=== PATIENT | female | born 1965 | race Caucasian/White ===

== ENCOUNTER → 2020-06-21 | Outpatient (CLI) | payer BC ==
[~2020-06-21] MED LIST: PROHANCE 279.3MG/ML 15ML VIAL As Ordered ONE
--- NOTE | 2020-06-28 08:50 | REP ---
INDICATION: DUCTAL CARCINOMA OF RT BREAST. Patient is recent biopsy diagnosis of ductal carcinoma in situ right breast. COMPARISON: Comparison breast MRI study is from December 07, 2015. Comparison right breast mammography and sonography May 29, 2020 which comparison mammography is reviewed from March 13, 2020 as well as February 29, 2020 and February 12, 2017. As well. TECHNIQUE: Three Whit MRI imaging was performed with a dedicated breast coil. Axial, coronal, and sagittal T1 and T2 weighted scans were obtained with and without fat saturation in the usual fashion. The study includes dynamically acquired post gadolinium-enhanced imaging with image subtraction. Maximum intensity projection and multi planar reformation imaging is included as well. This study is interpreted with the aid of [employer], an FDA approved computer aided detection (CAD) software program, on a dedicated breast MRI workstation. The gadolinium enhancement dose is 14. mL of intravenous ProHance. FINDINGS: There is a marked amount of fibroglandular tissue bilaterally corresponding with the mammographic pattern. There is marked background parenchymal enhancement. There is no evidence of axillary lymphadenopathy or internal mammary lymphadenopathy on either side. There are multiple breast cysts bilaterally again noted. The largest of these benign-appearing cysts in the right breast at approximately the 8 o'clock position. This cyst measures 1.7 cm in greatest diameter. There is a heterogeneous area in the region of the fundus of the gallbladder or adjacent to the fundus of the gallbladder in the nearby liver noted at the bottom of the imaging field of view. This should be further evaluated with right upper quadrant ultrasound. There is a T2 hyperintense nodule demonstrating type 3 enhancement in the 4 o'clock position of the left breast middle 3rd. There is a corresponding nodule visible on recent mammography. This may be fibroadenoma but appears to be a mammographic change. This showed be histologically sampled. There is a previously placed needle biopsy marker clip posterior to this in the left breast as well generating MR artifact. In the right breast in the area of the recently placed needle biopsy marker clip artifact, there is a ill-defined heterogeneous new area of contrast enhancement measuring 2.3 cm medial to lateral by 1.0 cm anterior to posterior located 3 cm from the nipple which is felt to correspond with biopsy-proven malignancy. It shows predominantly benign pattern enhancement with a few foci of plateau pattern enhancement. Other than the the marked diffuse bilateral background parenchymal enhancement pattern which was previously observed, no other suspicious focus enhancement and/or washout or morphologic changes seen on today's study. IMPRESSION: BI-RADS category 6 known right breast malignancy. A 2.3 cm ill-defined area of mixed pattern enhancement is seen adjacent to the biopsy marker clip in the medial right breast at approximately the 3 o'clock position. No other suspicious abnormality is noted on the right. There is no visible adenopathy. BI-RADS category 4 suspicious findings left breast with a 7 mm well-circumscribed nodule displaying T2 hyperintensity and type 3 enhancement at 4 o'clock in the left breast. This may be fibroadenoma but appears to be a new finding. Histologic sampling is recommended. Second-look ultrasound can be performed however I feel the nodule in question can be observed correlating the MR findings with the mammogram and stereotactic needle biopsy would be a possibility as well. Lastly, there is a heterogeneous area in or adjacent to the fundus of the gallbladder seen at the bottom of the imaging field of today's study. This should be investigated further with right upper quadrant abdominal sonography. <Electronically signed by Tobin Peters > 06/28/20 [id number]
== END ==
LOC: M RAD 16:13
PROVIDERS: ATTEND Surgery
DX: D05.11 Intraductal carcinoma in situ of right breast (principal)
CPT/HCPCS: A9576; C8908

== ENCOUNTER → 2020-07-04 | Outpatient (CLI) | payer BC ==
[~2020-07-04] MED LIST changes: +OCUV1CHW PO; +OSTE1TAB2 PO; -PROHANCE 279.3MG/ML 15ML VIAL As Ordered ONE; +ZINC1TAB2 PO
--- NOTE | 2020-07-04 16:29 | RADONC.CN ---
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 She is s/p biopsy on 05/19/20 and will undergo surgery with Dr. Collins in the coming weeks. She is seen today prior to surgery to discuss potential adjuvant RT options. Diagnosis/Treatment History Oncologic History 02/29/20 Mammogram with right breast microcalcifications lower inner quadrant 03/13/20 Right breast US inconclusive 05/29/20 [facility] mammogram and US biopsy showing DCIS ER/DE+ Grade 3 06/15/20 Surgical consultation (Karina) plan for lumpectomy tentatively. Second look/marker placement US 07/18/20 Breast history Menses @ 20 Menopause @ 52 No OCP No HRT No IVF Interval History Feels well overall no complaints. No pain in the breasts, appetite good and weight stable. Past Medical History: None Past Surgical History: Prior left breast biopsy 2013 Family History: Paternal grandmother leukemia Paternal uncle lung cancer Paternal uncle leukemia Social History: Never smoker Never drinker Allergies / Meds Home Meds Reported Medications Zinc (Zinc) 50 Mg Tablet, 1 TAB PO DAILY for 30 Days, #30 TAB 07/04/20 Vit D3-Vit K/Berberine/Hops (Ostera Tablet) 1 Each Tablet, 1 TAB PO, TAB 07/04/20 Vit C/E/Zinc/Lutein/Zeaxanthin (Ocuvite Eye Health Gummies) 1 Each Tab.chew, 1 TAB PO DAILY for 30 Days, #30 TAB 07/04/20 Review of Systems General: Reports: Normal Appetite Constitutional: Denies: Chills, Fever, Night Sweats Eyes: Denies: Pain, Vision change HEENT: Denies: Head Aches, Dysphagia, Sore Throat Skin: Denies: Rash, Lesions, Bruising Pulmonary: Denies: Dyspnea, Cough Cardiovascular: Denies: Chest Pain, Palpitations, Edema Gastrointestinal: Denies: Nausea, Vomiting, Abdominal Pain, Diarrhea Genitourinary: Denies: Dysuria, Frequency, Incontinence Hematologic: Denies: Bruising, Petecchia, Enlarged Lymph Nodes Musculoskeletal: Denies: Neck pain, Back pain Neurological: Denies: Weakness, Numbness, Incoordination Psych: Reports: Mood Normal; Denies: Memory Issues, Thoughts of Self Harm Vital Signs Ht 62" Wt 162 lbs BMI 30 T 98 P 85 RR 18 BP 119/80 O2 98% Pain 0 Fatigue 0 General Exam: Positive: Alert Eye Exam: Positive: PERRLA, EOMI ENT EXAM: Positive: Mucous membr. moist/pink, Pharynx Normal Neck Exam: Negative: Thyromegaly, Lymphadenopathy Chest Exam: Positive: Normal air movement; Negative: Rales, Rhonchi, Wheezing Heart Exam: Positive: Rate Normal, Regular Rhythm Breast Exam: Positive: Symmetric Bilaterally (Dense breast tissue on palpation); Negative: Lumps or Masses, Nipple Retraction, Nipple Discharge, Skin Changes, Other Breast Findings (No axillary adenopathy BL) Abdomen Exam: Positive: Soft; Negative: Tenderness, Mass Extremity Exam: Negative: Edema, Tenderness Skin Exam: Positive: Nl turgor and temperature; Negative: Rash Neuro Exam: Positive: Normal Gait, Normal Speech, Cranial Nerves 3-12 NL Psych Exam: Positive: Mental status NL, Mood NL Diagnostic and Laboratory Diagnostic Review Radiologic images, relevant labs and pathology reports were personally reviewed and discussed with Ms. Sauceda. Assessment and Plan Impression Ms. Sauceda is a 54 year old female with a history of screening mammogram detected right breast DCIS [id number] ER/DE+ Grade 3. She is s/p biopsy on 05/19/20 and will undergo surgery with Dr. Collins in the coming weeks. She is seen today prior to surgery to discuss potential adjuvant RT options. Stage Stage 0 Right breast DCIS [id number] ER/DE+ Grade 3 Performance Status ECOG 0 Plan We had an extensive discussion with Ms. Sauceda regarding the diagnosis at hand and available therapeutic options. She is healthy and fit overall. She has no palpable abnormality on breast exam today. I reviewed the natural history of DCIS at length with her. I also reviewed the main paradigms of treatment with her. Mastectomy +/- reconstruction, usually without adjuvant RT + AI Lumpectomy with adjuvant RT + AI She has been interested in lumpectomy and intends to pursue this with Dr. Collins pending clip placement and US on 07/18/20. I then reviewed at length the various RT strategies and how they would be contingent upon final surgical pathology. We discussed the standard treatment WBI with moderate hypofractionation, I use 40 Gy in 15 fractions, and newer evidence (from the recent TROG study) which affirms the utility of tumor bed boost in most cases. We also discussed the indications and appropriateness of APBI in select DCIS cases. We discussed the logistics of receiving radiation therapy in detail including the need for a 1-time planning session. We discussed potential side effects including fatigue, skin reaction and late fibrosis. We also discussed the purpose of taking an AI after completion of surgery and adjuvant RT (because she asked), she will meet with Dr. Roe more extensively about this later today. After discussing the risks, benefits and alternatives to radiation therapy, Ms. Sauceda was amenable to pursuing radiotherapy contingent upon final pathology. All questions were answered to the patient's satisfaction. We instructed the patient that if there were any questions,concerns or changes in clinical status in the interim to contact us. Recommendations Will follow up surgical date and pathology and proceed with adjuvant RT accordingly Most likely WBI 40 Gy in 15 fractions + 10 Gy in 5 fraction tumor bed boost, or APBI per IMPORT LOW or FAST FORWARD regimens Billing Statement Total time of [45] minutes was spent preparing for the visit [2], obtaining HPI [5], examining the patient [4], reviewing diagnostic tests [5], discussing management options [20], coordinating care [1], and writing this note [8]. LESLEE GUAN MD July 04, 2020 16:29
== END ==
LOC: M ONCR 12:54
PROVIDERS: ATTEND General Practice
DX: D05.11 Intraductal carcinoma in situ of right breast (principal)

== ENCOUNTER → 2020-07-18 | Outpatient (CLI) | payer BC ==
--- NOTE | 2020-07-18 12:17 | REP ---
INDICATION: ABN MRI ABD, ABN MRI LT BREAST, SECOND LOOK IMAGES. COMPARISON: Mammogram 05/29/2020, MRI 06/21/2020. TECHNIQUE: Real-time sonographic evaluation of left breast performed. FINDINGS: Attention is paid to the inferolateral left breast where a 7 mm enhancing nodule is seen by MRI. This is also felt to be visualized on the prior mammogram. In the 3 o'clock region of the left breast there are oval nodules which have a sonographic appearance of small intramammary lymph nodes, measuring 5 x 3 x 5 mm and 6 x 3 x 6 mm. A cystic structure in the retroareolar region measures 7 mm. At 3 o'clock near the nipple there is a 7 mm septated cyst. At 5 o'clock there is a 5 mm cyst approximately 4 cm from the nipple. IMPRESSION: BIRADS/ACR category 4 suspicious. The solid nodule in the inferolateral left breast seen on the MRI is not identified sonographically. Recommend stereotactic biopsy. RECOMMENDATION: Recommend stereotactic biopsy of oval nodule inferolateral left breast. <Electronically signed by Edgar Purdy > 07/18/20 [id number]
--- NOTE | 2020-07-18 14:35 | REP ---
INDICATION: ABN MRI ABD, ABN MRI LT BREAST, SECOND LOOK IMAGES COMPARISON: No prior ultrasound, CT, or MRI is available for comparison. TECHNIQUE: Real time castano scale ultrasound examination using curved array transducer. FINDINGS: Liver and visualized pancreas are normal. The gallbladder demonstrates a questionable mass at the fundus with small echogenic foci. Differential diagnosis would include tumefactive sludge. There is no wall thickening or pericholecystic fluid. No biliary ductal dilatation is appreciated and the common bile duct measures 3 mm diameter. Right kidney is normal in reniform shape in appearance without hydronephrosis and measures 10.0 x 4.5 x 3.9 cm. No ascites. IMPRESSION: Cannot exclude mass versus tumefactive sludge in the gallbladder fundus. Consider pre and postcontrast CT of the abdomen for further investigation. <Electronically signed by Thiago Galvin > 07/18/20 [id number]
== END ==
LOC: M RAD 09:04
PROVIDERS: ATTEND Surgery
DX: R93.5 Abnormal findings on diagnostic imaging of other abdominal regions, including retroperitoneum (principal); N63.25 Unspecified lump in the left breast, overlapping quadrants

== ENCOUNTER → 2020-07-20 | Outpatient (CLI) | payer BC ==
[2020-07-20 16:01] VITALS: BP 130/80
--- NOTE | 2020-07-21 18:36 | REP ---
INDICATION: R92.8 ABN MRI LT BREAST, STEROTACTIC BX. COMPARISON: None. TECHNIQUE: The procedure was performed under the general supervision of Dr. Purdy. The patient has a history of a well-circumscribed 7 mm nodule at the 4 o'clock position of the left breast seen on a previous MRI dated 06/21/2020. This correlates with the previous finding on the mammogram. The risks and benefits of the procedure were explained to the patient and informed consent was obtained. A caudal cranial approach was utilized. The nodule was localized using stereotactic mammographic guidance. 1% Xylocaine was used as a local anesthetic. An 10 gauge, suction assisted Mammotome needle was inserted and 6 core biopsy samples were obtained. A marker (HydroMARK shape 3) clip was placed at the biopsy site. The patient tolerated the procedure well and there were no immediate complications. After the appropriate amount of monitored convalescence, the patient was discharged from the department. FINDINGS: None IMPRESSION: Stereotactic left breast biopsy with marker clip placement. (HydroMARK shape 3) <Electronically signed by Juanito Langford > 07/20/20 1712 <Electronically signed by Edgar Purdy > 07/21/20 3032
--- NOTE | 2020-07-21 18:36 | REP ---
INDICATION: C50.911 RT BREAST CA,POST STEREO PLACEMENT HYDROMARK X2. COMPARISON: None. TECHNIQUE: The procedure was performed under the general supervision of Dr. Purdy. The risks and benefits of the procedure were explained to the patient and informed consent was obtained. The patient is referred for placement of HydroMARK clips bracketing the calcifications in the area of a known right breast malignancy. A craniocaudal approach was utilized. The more lateral aspect of the calcifications were localized using stereotactic mammographic guidance. The skin was prepped and draped in a sterile fashion. 1% lidocaine was used as local anesthetic. The mammotome biopsy needle was inserted and a HydroMARK shape 3 marker clip was deployed. The more medial aspect of the calcifications were localized using stereotactic mammographic guidance. The skin was prepped and draped in a sterile fashion. 1% lidocaine was used as a local anesthetic. The mammotome biopsy needle was inserted and the HydroMARK shape 1 marker clip was deployed. The patient tolerated the procedure well and there were no immediate complications. FINDINGS: None IMPRESSION: Stereotactic guidance for bracketing of a known right breast malignancy. A HydroMARK shape 3 was placed in the more lateral aspect of the calcifications. A HydroMARK shape 1 was placed at the more medial aspect of the calcifications. <Electronically signed by Juanito Langford > 07/20/20 1702 <Electronically signed by Edgar Purdy > 07/21/20 [id number]
--- NOTE | 2020-07-21 18:40 | REP ---
INDICATION: R92.8 ABN MRI LT BREAST,POST STEROTACTIC BX. COMPARISON: 02/29/2020 mammogram, 06/21/2020 MRI. TECHNIQUE: ML and CC views performed of the left breast following stereotactic biopsy of a nodule laterally. FINDINGS: A marking clip is seen just anterior to the nodule that was biopsied stereotactically. The clip is projecting approximately 3 mm anterior to the margin of the nodule that was biopsied. Over on the lateral view the clip appears more superiorly located than would be expected. The stereotactic guidance images show excellent alignment of the stereotactic needle with the nodule. IMPRESSION: Biopsy marker clip placement superior to the nodule that was biopsied stereotactically. If the nodule needs to be localized for excision, direct localization of the nodule should be performed, as the clip is displaced away from the nodule. RECOMMENDATION: Clinical follow-up. <Electronically signed by Edgar Purdy > 07/21/20 [id number]
== END ==
LOC: M WHCPRO 06:37
PROVIDERS: ATTEND Surgery
DX: R92.8 Other abnormal and inconclusive findings on diagnostic imaging of breast (principal); C50.911 Malignant neoplasm of unspecified site of right female breast

== ENCOUNTER → 2020-08-01 | Outpatient (CLI) | payer BC ==
[~2020-08-01] MED LIST changes: +GASTROGRAFIN SOLUTION 30ML (Q9963) As Ordered ONE; +ISOVUE-370 76% 100ML VIAL As Ordered ONE
--- NOTE | 2020-08-01 12:20 | REP ---
INDICATION: GB MASS W/ ABN MRI LT BREAST. COMPARISON: None. TECHNIQUE: Standard helical technique after the intravenous administration of 100 cc Isovue 370 and oral bowel preparatory contrast administration. FINDINGS: The lung bases are clear. Within the gallbladder fundal region there is a single cholelith which measures 6 mm. The gallbladder wall surrounding this is thickened and abnormally enhances. The remainder of the gallbladder is within normal limits. Within the body of the pancreas along the posterior wall there is a 1.8 cm sized oval-shaped smoothly marginated low-density structure which has slightly higher than water density Hounsfield unit readings but shows no evidence of either peripheral or central contrast enhancement. There is no pancreatic ductal dilatation in the remainder of the pancreas is within normal limits. There is no peripancreatic adenopathy. The liver, spleen, adrenal glands, and kidneys are within normal limits. The abdominal aorta and para-aortic regions are within normal limits. The bowel loops and the mesenteries are within normal limits. There is no evidence of free fluid or free air. There is evidence of asymmetric uterine enlargement and seen with multiple mixed enhancing masses. There is no pelvic sidewall or inguinal adenopathy. Bone window technique throughout the exam shows the osseous structures to be within normal limits. IMPRESSION: 1. Findings involving the gallbladder as described above. The finding appears to be limited to a phrygian cap. The pericholecystic fat planes are normal. Surgical consultation is, however, suggested. Consider follow-up with MRI. 2. There is a cystic lesion in the pancreas as described above. Although it has a nonenhancing benign appearance I would suggest pre and post gadolinium enhanced pancreatic MRI for further evaluation. 3. Findings involving the uterus as described above. CT poorly evaluates the uterus and follow-up with pelvic ultrasonography is recommended. 4. Other findings as described above. <Electronically signed by Suresh Echols > 08/01/20 2219
== END ==
LOC: M RAD 09:30
PROVIDERS: ATTEND Surgery
DX: R92.8 Other abnormal and inconclusive findings on diagnostic imaging of breast (principal); K82.8 Other specified diseases of gallbladder
CPT/HCPCS: 74177; Q9963; Q9967

== ENCOUNTER → 2020-08-10 | Outpatient (CLI) | payer BC ==
[~2020-08-10] MED LIST changes: +D31000TA2 PO; -GASTROGRAFIN SOLUTION 30ML (Q9963) As Ordered ONE; -ISOVUE-370 76% 100ML VIAL As Ordered ONE; +VITA-243 PO
--- NOTE | 2020-08-11 12:55 | ECHO ---
ECHOCARDIOGRAM DATE OF PROCEDURE: 08/10/2020 Age: 54 Gender: Female Height: 65 inches Weight: 158 pounds Body surface area: 1.78 m2 Outpatient. REFERRING PHYSICIAN: Dr. Bhat. INDICATION: Left bundle branch block. MEASUREMENTS: 2D Measurements: RV - 3.3 cm LV - 4.3 cm Septum 1.0 cm Posterior wall 1.0 cm Aortic root 2.8 cm LA - 3.5 cm LVEF 50% Doppler Measurements: AV - 1.4 m/s LVOT - 0.9 m/s LVOT diameter 2.0 cm MV - E 122, A 80 E/A ratio 1.5 Early mitral deceleration time 197 msec E prime medial 7.2 A prime medial 10 E prime lateral 8.7 Average E/E prime ratio 15/PCWP 20 mmHg PV - 0.8 m/s Pulmonary artery acceleration time 140 msec RVSP 23 mmHg IVC - 1.0 cm COMMENTS: Normal sinus rhythm with left bundle branch block. M-mode and 2-dimensional echocardiography was performed with pulse, continuous wave, color flow, and tissue Doppler studies. Normal left ventricular size and wall thickness with paradoxical septal motion and apical hypokinesis related to left bundle branch block. Global systolic function appears lower limits of normal to minimally impaired. Left atrial size was normal with grade 2 LV diastolic dysfunction and mildly elevated estimated mean left atrial pressure. Normal right heart chamber sizes and motion and estimated pulmonary arterial pressure. Normal IVC size and collapse suggestive of a low central venous pressure. Normal aortic dimensions. Normal-appearing and functioning valvular structures with trace mitral and very mild tricuspid insufficiency. No apparent intracardiac mass or pericardial effusion.
== END ==
LOC: M CARPUL 14:57
PROVIDERS: ATTEND Family Medicine
DX: I44.7 Left bundle-branch block, unspecified (principal); I44.0 Atrioventricular block, first degree

== ENCOUNTER → 2020-08-21 | Outpatient (CLI) | payer BC ==
--- NOTE | 2020-08-21 09:17 | REP ---
INDICATION: OTHER CHEST PAIN COMPARISON: None. TECHNIQUE: PA and lateral. FINDINGS: The mediastinum and cardiac silhouette are normal. The lung jones are clear and without acute consolidation, effusion, or pneumothorax. The skeletal structures are intact and normal. IMPRESSION: No acute cardiopulmonary process. <Electronically signed by Thiago Galvin > 08/21/20 0914
== END ==
LOC: M RAD 08:58
PROVIDERS: ATTEND Internal Medicine Cardiovascular Disease
DX: R07.89 Other chest pain (principal)

== ENCOUNTER → 2020-08-29 | Outpatient (CLI) | payer BC, MEDICAID ==
[~2020-08-29] MED LIST changes: +SOYB50CA PO
[2020-08-29 19:25] LABS: FREE T4 1.07 NG/DL (0.76-1.46); THYROID STIMULATING HORMONE 1.86 uIU/ML (0.358-3.740)
== END ==
LOC: M PLALAB 13:50
PROVIDERS: ATTEND Family Medicine
DX: Z86.39 Personal history of other endocrine, nutritional and metabolic disease (principal)

== ENCOUNTER → 2020-09-01 | Outpatient (CLI) | payer BC | LOC: M WHC 12:30 | PROVIDERS: ATTEND Surgery | DX: N85.8 Other specified noninflammatory disorders of uterus (principal); Z53.8 Procedure and treatment not carried out for other reasons ==

== ENCOUNTER → 2020-09-04 | Outpatient (CLI) | payer BC ==
--- NOTE | 2020-09-04 14:37 | REP ---
INDICATION: N85.8 UTERINE MASS. COMPARISON: Comparison CT study of the pelvis is from August 01, 2020.. TECHNIQUE: Transabdominal scanning was performed. The patient declined transvaginal scanning.. FINDINGS: Uterus is mildly enlarged with overall dimensions of 8.4 x 5.1 x 5.4 cm. Uterine myometrial texture is heterogeneous. There appears to be fibroid in the uterine fundus but is difficult to evaluate on transabdominal scan. The patient declined transvaginal imaging. The CT study shows evidence of a myometrial fibroid measuring 4.6 cm and a smaller fibroid as well. Today's sonographic images demonstrate a 4.5 x 3.9 x 4.5 cm fibroid.. No free fluid is seen. Neither ovary could be directly visualized transabdominally. No adnexal mass is seen.. IMPRESSION: There is a 4.5 cm fibroid visible in the uterus. Neither ovary could be directly visualized.. <Electronically signed by Tobin Peters > 09/04/20 [id number]
== END ==
LOC: M WHC 12:52
PROVIDERS: ATTEND Surgery
DX: D25.9 Leiomyoma of uterus, unspecified (principal)

== ENCOUNTER → 2020-09-07 | Outpatient (CLI) | payer BC | LOC: M LABSMTC 10:17 | PROVIDERS: ATTEND Anesthesiology | DX: Z01.812 Encounter for preprocedural laboratory examination (principal); Z11.52 Encounter for screening for COVID-19 ==

== ENCOUNTER → 2020-09-07 | Outpatient (CLI) | payer BC | LOC: M PLALAB 10:42 | PROVIDERS: ATTEND Family Medicine | DX: E55.9 Vitamin D deficiency, unspecified (principal) ==

== ENCOUNTER 2020-09-12 06:08 | Observation (INO) | payer BC ==
[2020-09-12] VITALS (7 sets, daily range): BP systolic 128–153; BP diastolic 74–93
[~2020-09-12] VITALS: Ht 157.5 cm; Wt 68.9 kg
[~2020-09-12 06:08] MED LIST changes: +HEPARIN SOD (PORCINE) 5000UNITS/ML 1ML VIAL/SYRINGE SQ ONE; +LR 1,000 ML IV ONE; +ceFAZolin SOD 2 GM in IV 1 EA IV ONE
[2020-09-12] MEDS ORDERED: MIDAZOLAM INJ 2MG/2ML VIAL (J2250 PER 1MG) As Ordered ONE (07:12)
[2020-09-12] MEDS ORDERED: fentaNYL 100 MCG/2 ML INJECTION (J3010) As Ordered ONE ×2 (07:12→08:27)
[2020-09-12] MEDS ORDERED: dexameTHASONE 4 MG/ML 1ML VIAL (J1100 PER 1MG) As Ordered ONE (07:13)
[2020-09-12] MEDS ORDERED: ONDANSETRON 4MG/2ML VIAL As Ordered ONE (07:13)
[2020-09-12] MEDS ORDERED: METOCLOPRAMIDE INJ 10MG/2ML VIAL (J2765 PER 1) As Ordered ONE (07:13)
[2020-09-12] MEDS ORDERED: LIDOCAINE 2% 100MG/5ML SDV (FOR ANES.) As Ordered ONE (07:13)
[2020-09-12] MEDS ORDERED: propofoL 200 MG/20 ML VIAL As Ordered ONE (07:13)
[2020-09-12] MEDS ORDERED: LIDOCAINE 1% SDV 30ML VIAL As Ordered ONE (07:15)
[2020-09-12] MEDS ORDERED: BUPIVACAINE HCL 0.25% 30ML VIAL As Ordered ONE (07:15)
[2020-09-12] MEDS ORDERED: ACETAMINOPHEN 1000MG 100ML IV BTL (OFIRMEV) (J0131 PER 10MG) As Ordered ONE (07:54)
[2020-09-12] MEDS ORDERED: HEPARIN SOD (PORCINE) 5000UNITS/ML 1ML VIAL/SYRINGE As Ordered ONE (08:03)
[2020-09-12] MEDS ORDERED: ONDANSETRON 4MG/2ML VIAL IV PRN ×2 (10:00→10:10)
[2020-09-12] MEDS: LR 1,000 ML IV SCH ×2 (10:00→23:20)
[2020-09-12] MEDS ORDERED: ACETAMINOPHEN TAB 650MG DOSE (2X325MG) PO PRN (10:00)
[2020-09-12] MEDS ORDERED: MORPHINE 2 MG/ML 1ML VIAL (J2270) IV PRN (10:00)
[2020-09-12] MEDS ORDERED: traMADol 50 MG TAB PO PRN (10:00)
[2020-09-12] MEDS ORDERED: LR 1,000 ML IV SCH (10:10)
[2020-09-12] MEDS ORDERED: oxyCODONE 5MG TAB PO PRN (10:10)
[2020-09-12] MEDS ORDERED: fentaNYL 100 MCG/2 ML INJECTION (J3010) IV PRN (10:10)
--- NOTE | 2020-09-12 20:09 | ROOPDOC ---
[facility] Report Of Operation Report of Operation DATE OF PROCEDURE: 09/12/20 PREPROCEDURE DIAGNOSES: RIGHT BREAST CANCER POSTPROCEDURE DIAGNOSES: SAME PROCEDURE PERFORMED: RIGHT LUMPECTOMY WITH INTRAOP PLACEMENT OF TWO WIRES SURGEON: DR. AASHISH TURNER ANESTHESIA: GENERAL ESTIMATED BLOOD LOSS: Approximately 25 mL. COMPLICATIONS: NONE FINDINGS: TWO WIRES, TWO HYDROMARK CLIPS, RIBBON CLIP, AND EXTENSIVE CALCIFICATIONS FOUND IN SPECIMEN DESCRIPTION OF PROCEDURE: INDICATIONS: Ms. Sauceda is a 54-year-old woman who was found to have suspicious calcifications in her right breast on screening mammogram at [facility]. Sonographic target was identified. US biopsy was done at [facility] and non-sono visible ribbon clip was placed. 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 I discussed with patient surgical options. Patient opted for breast conservative surgery. Since calcifications were spanning between 2-3 cm, Hydromark clips were placed via stereotactic approach to allow bracketing of the calcifications. She was medically cleared for surgery by her primary care doctor. Risks and possible complications of surgical procedure including bleeding, infection and injury to surrounding structures were explained to the patient and she wished to proceed. Consent was signed. My initials were placed on the operative site. Subcutaneous injection of 5000 units of heparin was done. DETAILS: Patient was taken to the operating room and placed on the operating room table. A sign in was called stating patients name, date of and the procedure to be done. Preoperative antibiotics were infused. Smooth induction of general anesthesia was done. Patients hands were extended on arm rests. Care was taken not to over extend the arms. Pillow was placed under the knees and a foam was placed under the heels. Sequential compression devices were placed and assured to function correctly. Procedure was started with right breast intraop wires localization. Appropriate time out was done and patients name, date of , and the procedure to be done were confirmed. Right breast was cleaned by me. Intraoperative ultrasound was used to confirm location of the Hydromark clips. Location of the clips was marked on the skin as well. First, 21 G Kopans Breast Lesion Localization Needle was used to place 25 cm wire through the clip closest to the nipple. After that, the second 21 G [place] Breast Lesion Localization Needle was used to place 25 cm wire through the second clip further away from the nipple. The images were captured confirming adequate placement of the localizing wire. Bass Viol Repairer assisted with the wire placement. Patients right breast was prepped and draped in the usual fashion. Care was taken not to displace the wires. Appropriate time out was done again prior to second part of the procedure. Patients name, date of , and the procedure to be done were confirmed. Next, local anesthetic using 1% lidocaine and 0.25 % Marcaine 50/50 mix was injected at the site of planned periareolar incision. The incision was made with the scalpel. Subcutaneous skin flaps were raised and the guide wires were carefully pulled into the wound. Dissection was carries first toward the clip closest to the nipple. Intraop Ultrasound was used to confirm the position of the clip. The guide wire marking this position was identified. Dissection was then carried further toward the second clip which is further away from the nipple. The second clip was identified also with intraop ultrasound. The end of the second wire was identified with palpation. The tissue between the two clips and two wires was carefully excised. The lumpectomy specimen measured 4x4 cm. It was then moved to the back table, while keeping its proper orientation, where margins were marked with the surgical inking kit following the standard colors recommendations. Specimen was then placed on the grid and placed in [employer] [facility]. The image revealed the 2 wires, extensive calcifications, ribbon clip and two Hydromark clips in the specimen. The specimen was labeled with patients name and right lumpectomy and sent to pathology. Since the anterior and posterior margins of the specimen appeared somewhat close to the calcifications, the anterior and posterior margins of the lumpectomy site were examined. The anterior margin is noted to be very thin with underlying dermis. Decision was made not to pursue any addition margin excision at the anterior site. The posterior margin is noted to be away from the muscle and additional posterior margin was excised. This was then placed on the grid and placed in [employer] [facility]. No calcifications were seen in the posterior margin. The new posterior margin, defined as margin farthest away from lumpectomy cavity, was marked with black ink. This margin was sent as a separate specimen named posterior margin. Wound was thoroughly irrigated. Adequate hemostasis was assured. Additional local anesthetic was injected into surrounding tissues. Clips were placed to sherri the cavity. space was approximated with 2-0 Vicryl. The dermis was closed with 3-0 Vicryl and skin was closed with 4-0 Monocryl. Surgical glue was placed over the incision. Patient emerged from the anesthesia without any problems. Fluffs were placed over the operative site and patients chest was wrapped snuggly in the SEAN wrap. Sponge and instrument counts were done and were correct. Patient tolerated procedure well and was taken to recovery unit in stable condition. AASHISH TURNER DO Sep 12, 2020 20:09
[2020-09-13 02:00] VITALS: BP 136/78
[2020-09-13] MEDS ORDERED: ROXI1TAB2 PO (07:56)
--- NOTE | 2020-09-13 08:02 | IPNPDOC ---
Subjective General Date Seen: Sep 13, 2020 Subject Chief Complaint/History The patient is a 54-year-old female admitted with a reason for visit of Right Breast Cancer, s/p right lumpectomy done yesterday. Patient was admitted for observation. Patient is doing well. There is no acute events overnight. She tolerated food. She voided postop. Pain is well-controlled Current Medications Current Medications Current Medications Medications (Trade) Dose Ordered Sig/Vee Route PRN Reason Start Time Stop Time Status Last Admin Dose Admin Acetaminophen (Tylenol Tab) 650 mg Q6H PRN PO MILD PAIN (PS 1-4) 09/12/20 10:00 Fentanyl Citrate (Sublimaze) 25 mcg Q5MP PRN IV PAIN LEVEL 5-10 09/12/20 10:10 09/12/20 12:10 DC Lactated Ringer's 1,000 ml @ 75 mls/hr [id number] IV 09/12/20 10:00 Lactated Ringer's 1,000 ml @ 100 mls/hr Q10H IV 09/12/20 10:10 09/12/20 12:10 DC Morphine Sulfate (Morphine Sulfate Inj) 2 mg Q3H PRN IV SEVERE PAIN (PS 8-10) 09/12/20 10:00 Ondansetron HCl (ZOFRAN INJection) 4 mg Q4H PRN IV NAUSEA OR VOMITING 09/12/20 10:00 09/12/20 10:30 Ondansetron HCl (ZOFRAN INJection) 4 mg Q4HP PRN IV NAUSEA OR VOMITING 09/12/20 10:10 09/12/20 12:10 DC Oxycodone HCl (Roxicodone, Oxyir) 5 mg ASDIRECTED PRN PO PAIN LEVEL 1-4 09/12/20 10:10 09/12/20 12:10 DC 09/12/20 10:31 Tramadol HCl (Ultram) 50 mg Q4HP PRN PO MODERATE PAIN (PS 5-7) 09/12/20 10:00 Allergies Coded Allergies: TAPE (Verified Allergy, Intermediate, clear plastic tape/blisters, 08/30/20) Objective Physical Examination Examination GENERAL APPEARANCE:Patient seen, laying in bed, awake, alert, and oriented. Comfortable, in no acute distress BREAST: Jaron wrap was in place. During exam Jaron wrap was removed. The right breast is soft. There is mild bruising in upper inner quadrant. There is no palpable hematoma. There is no erythema or drainage from the periareolar incision. Incision is well approximated and closed with glue. LUNGS: Breathing comfortably on room air HEART: No tachycardia ABDOMEN: Abdomen soft EXTREMITIES: Ambulating without assistance Vital Signs Vital Signs Date Time Temp Pulse Resp B/P (MAP) Pulse Ox O2 Delivery O2 Flow Rate FiO2 09/13/20 02:00 97.6 60 17 136/78 (97) 98 Room Air I&Os I&O- Last 24 Hours up to 6 AM 09/13/20 06:00 Intake Total 2550 ml Output Total 25 ml Balance 2525 ml Impression 54-year-old woman with history of right breast cancer (DCIS), status post right lumpectomy with Intra-Op wire placement done 09/12/20 Patient is doing well postop. -Stable for discharge today. Prescription sent to pharmacy. - Patient has a follow-up appointment on 09/18/20 at 10:30. -Keep Jaron wrap till Friday. Wear support bra afterwards -Plan discussed with nursing staff. Plan / VTE VTE Prophylaxis Ordered?: Yes AASHISH TURNER DO Sep 13, 2020 08:02
[2020-09-13] MEDS: LR 1,000 ML IV SCH (12:40)
[2020-11-09] MEDS ORDERED: ANAS1TAB2 PO (15:02)
== END 2020-09-13 13:05 | disposition home or self-care (01) ==
LOC: M SDC 06:08 → M MS5PR 06:09
PROVIDERS: ADMIT Surgery; ATTEND Surgery
DX: D05.11 Intraductal carcinoma in situ of right breast (principal); Z17.0 Estrogen receptor positive status [ER+]; R94.31 Abnormal electrocardiogram [ECG] [EKG]; K21.9 Gastro-esophageal reflux disease without esophagitis
CPT/HCPCS: 19125; 36415; 76942; 86850; 86900; 86901; 88305; J0131; J0690; J1100; J1644; J2250; J2405; J2765; J3010

== ENCOUNTER → 2020-09-21 | Outpatient (CLI) | payer BC ==
[~2020-09-21] MED LIST changes: -HEPARIN SOD (PORCINE) 5000UNITS/ML 1ML VIAL/SYRINGE SQ ONE; -LR 1,000 ML IV ONE; +ROXI1TAB2 PO; -ceFAZolin SOD 2 GM in IV 1 EA IV ONE
== END ==
LOC: M LABSMTC 13:55
PROVIDERS: ATTEND Anesthesiology
DX: Z11.52 Encounter for screening for COVID-19 (principal)

== ENCOUNTER 2020-09-26 07:21 | Observation (INO) | payer BC ==
[~2020-09-26] VITALS: Ht 165.1 cm; Wt 67.6 kg
[~2020-09-26 07:21] MED LIST changes: +HEPARIN SOD (PORCINE) 5000UNITS/ML 1ML VIAL/SYRINGE SQ ONE; +LR 1,000 ML IV ONE; +ceFAZolin SOD 2 GM in IV 1 EA IV ONE
[2020-09-26] MEDS ORDERED: ACETAMINOPHEN 1000MG 100ML IV BTL (OFIRMEV) (J0131 PER 10MG) As Ordered ONE (08:42)
[2020-09-26] MEDS ORDERED: SUGAMMADEX SODIUM 500 MG/5 ML VIAL (BRIDION) As Ordered ONE (08:42)
[2020-09-26] MEDS ORDERED: KETOROLAC 60MG 2ML VIAL As Ordered ONE (08:42)
[2020-09-26] MEDS ORDERED: LIDOCAINE 2% 100MG/5ML SDV (FOR ANES.) As Ordered ONE (08:42)
[2020-09-26] MEDS ORDERED: propofoL 200 MG/20 ML VIAL As Ordered ONE (08:42)
[2020-09-26] MEDS ORDERED: ONDANSETRON 4MG/2ML VIAL As Ordered ONE (08:42)
[2020-09-26] MEDS ORDERED: dexameTHASONE 4 MG/ML 1ML VIAL (J1100 PER 1MG) As Ordered ONE (08:42)
[2020-09-26] MEDS ORDERED: fentaNYL 100 MCG/2 ML INJECTION (J3010) As Ordered ONE (08:43)
[2020-09-26] MEDS ORDERED: MIDAZOLAM INJ 2MG/2ML VIAL (J2250 PER 1MG) As Ordered ONE (08:43)
[2020-09-26] MEDS ORDERED: LIDOCAINE 1% SDV 30ML VIAL As Ordered ONE (09:03)
[2020-09-26] MEDS ORDERED: BUPIVACAINE HCL 0.25% 30ML VIAL As Ordered ONE (09:04)
[2020-09-26] MEDS ORDERED: GLYCOPYRROLATE INJ 0.2 MG/ML 2 ML VIAL As Ordered ONE (10:19)
[2020-09-26] MEDS ORDERED: ONDANSETRON 4MG/2ML VIAL IV PRN ×2 (11:15)
[2020-09-26] MEDS ORDERED: PERCOCET 5MG/325MG TAB PO PRN (11:15)
[2020-09-26] MEDS ORDERED: ACETAMINOPHEN TAB 650MG DOSE (2X325MG) PO PRN (11:15)
[2020-09-26] MEDS ORDERED: METOCLOPRAMIDE INJ 10MG/2ML VIAL (J2765 PER 1) IV PRN (11:15)
[2020-09-26] MEDS ORDERED: MORPHINE 2 MG/ML 1ML VIAL (J2270) IV PRN (11:15)
[2020-09-26] MEDS ORDERED: traMADol 50 MG TAB PO PRN (11:15)
[2020-09-26] MEDS ORDERED: LR 1,000 ML IV SCH ×2 (11:15)
[2020-09-26] MEDS ORDERED: fentaNYL 100 MCG/2 ML INJECTION (J3010) IV PRN (11:15)
[2020-09-26 13:45] VITALS: BP 122/74
[2020-09-26 14:45] VITALS: BP 121/80
[2020-09-26 15:45] VITALS: BP_SYST 120; BP_SYST 130; BP_DIAS 77; BP_DIAS 80
[2020-09-26] MEDS: ceFAZolin SOD 2 GM in IV 1 EA IV SCH (16:59)
[2020-09-26 22:00] VITALS: BP 131/71
[2020-09-27] MEDS: ceFAZolin SOD 2 GM in IV 1 EA IV SCH (00:46)
[2020-09-27 02:00] VITALS: BP 131/73
[2020-09-27 06:00] VITALS: BP 113/67
[2020-09-27 10:13] VITALS: BP 105/64
--- NOTE | 2020-09-27 10:41 | ROOPDOC ---
[facility] Report Of Operation Report of Operation DATE OF PROCEDURE: 09/26/20 PREPROCEDURE DIAGNOSES: Right breast cancer POSTPROCEDURE DIAGNOSES: Right breast cancer PROCEDURE PERFORMED: Right breast lumpectomy lateral margin reexcision SURGEON: Dr. Aashish Turner ANESTHESIA: general ESTIMATED BLOOD LOSS: Approximately 10 mL. COMPLICATIONS: none FINDINGS: no calcifications seen in radiography of reexcised lateral margin, original lateral margin clip was identified PROCEDURE NOTE: INDICATIONS: Ms. Sauceda is a 54-year-old woman who was found to have suspicious calcifications in her right breast on screening mammogram at [facility]. Sonographic target was identified. US biopsy was done at [facility] and non-sono visible ribbon clip was placed. Pathology report came back as a DCIS, Grade 3, ER/MI+. I discussed with patient surgical options. Patient opted for breast conservative surgery. Since calcifications were spanning between 2-3 cm, Hydromark clips were placed via stereotactic approach to allow bracketing of the calcifications. She was medically cleared for surgery by her primary care doctor. Patient underwent Right breast lumpectomy with intraop wire placement x 2 on September 11, 2020. Her surgical pathology showed DCIS. Margins were negative, however, lateral margin was close at 1 mm. I discussed with the patient that additional excision is needed of the lateral margin to assure that there is no additional cancer focus left at the edge of resection. Patient agreed to the plan and additional excision of the lateral lumpectomy margin. Risks and possible complications of surgical procedure including bleeding, infection and injury to surrounding structures were explained to the patient and she wished to proceed. Consent was signed. My initials were placed on the operative site. Subcutaneous injection of 5000 units of heparin was done. DETAILS: Patient was taken to the operating room and placed on the operating room table. A sign in was called stating patients name, date of and the procedure to be done. Preoperative antibiotics were infused. Smooth induction of general anesthesia was done. Patients hands were extended on arm rests. Care was taken not to over extend the arms. Pillow was placed under the knees and a foam was placed under the heels. Sequential compression devices were placed and assured to function correctly. The procedure was started with opening the previous right breast periareolar incision. This was done with scalpel. Blunt dissection was carried toward the seroma cavity which was identified with intraop ultrasound. Seroma fluid was evacuated upon entering the cavity. Previously placed 2-0 Vicryl dyed sutures closing the seroma cavity were identified and removed. Cavity margins were assessed and the lateral margin was identified. The previously placed lateral margin clip was identified. Allis clamps were used to grab the lateral margin tissue and a sharp dissection of tissue with 1 cm depth was done along entire lateral aspect of the original lumpectomy cavity. Specimen was carefully moved to the back table and marked with the surgical inking kit following the standard colors recommendations with the exception that the margin closes to the lumpectomy site (false margin) was left uninked. Spec imen measured 3.5 x 1.5 x 1.5 cm Specimen was then placed on the grid and placed in [employer] Specimen Imaging System. The image revealed no obvious calcifications. The previously placed marking clip from the original lumpectomy cavity was confirmed to be in place on the radiography. The specimen was labeled with patients name and right lumpectomy lateral margin and sent to pathology. A new clip was placed at the new lateral lumpectomy margin. Next, the wound was irrigated thoroughly and adequate hemostasis was assured. Additional local anesthetic was injected into surrounding tissues. space was approximated with 2-0 Vicryl. The dermis was closed with 3-0 Vicryl and skin was closed with 4-0 Monocryl. Surgical glue was placed over the incision. Patient emerged from the anesthesia without any problems. Fluffs were placed over the operative site and patients chest was wrapped snuggly in the SEAN wrap. Sponge and instrument counts were done and were correct. Patient tolerated procedure well and was taken to recovery unit in stable condition. AASHISH TURNER DO Sep 27, 2020 10:41
--- NOTE | 2020-09-27 10:46 | IPNPDOC ---
Subjective Date Seen The patient was seen on 09/27/20. Subjective Chief Complaint/HPI 55-year-old lady with history of right breast DCIS, hormone positive status post right breast lumpectomy on September 12 2020 and status post right lumpectomy lateral margin reexcision on September 26 2020. Patient was admitted postop for observation. She's recovering well. She was able to tolerate food and voided. Her fluids were stopped. Pain is well controlled. No acute issues overnight Objective Physical Examination Other physical findings Patient is alert and oriented 3 Breathing comfortably on room air Right breast periareolar incision is well approximated. The glue this in place. There is no drainage from the incision site. There is no erythema. There is mild ecchymosis of the right upper inner breast. Breast is soft. There is no palpable hematoma. Jaron wrap was replaced after examination Assessment /Plan Assessment 55-year-old woman with right DCIS, hormone positive status post right lumpectomy September 12, 2020 and right lumpectomy lateral margin reexcision on September 26 2020. -Stable for discharge today from surgical point. -Continue wearing Jaron wrap at least until tomorrow -Will not send any additional pain medication prescription as patient has previ ous prescription not used yet - Planned discharge around lunchtime -Patient will follow-up with me in the clinic next week Plan/VTE VTE Prophylaxis Ordered?: Yes VS, I&O, 24H, Fishbone Vital Signs/I&O Vital Signs Date Time Temp Pulse Resp B/P (MAP) Pulse Ox O2 Delivery O2 Flow Rate FiO2 09/27/20 10:13 97.2 67 18 105/64 (78) 66 Room Air I&O- Last 24 Hours up to 6 AM 09/27/20 06:00 Intake Total 2000 ml Output Total 10 ml Balance 1989 ml AASHISH TURNER DO Sep 27, 2020 10:46
== END 2020-09-27 13:15 | disposition home or self-care (01) ==
LOC: M SDC 07:21 → M MS5PR 11:12
PROVIDERS: ADMIT Surgery; ATTEND Surgery
DX: D05.11 Intraductal carcinoma in situ of right breast (principal); I42.9 Cardiomyopathy, unspecified; R12 Heartburn; I44.7 Left bundle-branch block, unspecified; E55.9 Vitamin D deficiency, unspecified; M19.90 Unspecified osteoarthritis, unspecified site; Z91.048 Other nonmedicinal substance allergy status
CPT/HCPCS: 19301; 36415; 81025; 86850; 86900; 86901; 88307; 96374; 96376; J0131; J0690; J1100; J1644; J1885; J2250; J2405; J3010

== ENCOUNTER → 2020-11-09 | Outpatient (RCR) | payer BC ==
[~2020-11-09] MED LIST changes: +ANAS1TAB2 PO; -HEPARIN SOD (PORCINE) 5000UNITS/ML 1ML VIAL/SYRINGE SQ ONE; -LR 1,000 ML IV ONE; -ceFAZolin SOD 2 GM in IV 1 EA IV ONE
== END ==
LOC: M ONCR 10-18 10:24
PROVIDERS: ATTEND General Practice
DX: D05.11 Intraductal carcinoma in situ of right breast (principal)

== ENCOUNTER 2020-11-27 13:52 | Outpatient (RCR) | payer BC ==
[2020-12-12] MEDS ORDERED: TRIA1OI TOP (15:30)
== END 2020-12-10 ==
LOC: M ONCR 13:52
PROVIDERS: ATTEND General Practice
DX: D05.11 Intraductal carcinoma in situ of right breast (principal); N64.59 Other signs and symptoms in breast

== ENCOUNTER → 2020-11-29 | Outpatient (CLI) | payer BC ==
--- NOTE | 2020-11-29 11:56 | DEXAMM ---
INDICATION: HX BREAST CA STARTING ANASTROZOLE. COMPARISON: None. TECHNIQUE: Bone density was measured using dual-energy x-ray absorptiometry (DEXA). FINDINGS: AP SPINE L1-L4 BMD 1.115 g/cm2 Young Adult T-Score -0.6 Age Matched Z-Score 0.0. LT FEMUR, TOTAL BMD 0.884 g/cm2 Young Adult T-Score -1.0 Age Matched Z-Score -0.4. LT NECK BMD 0.822 g/cm2 Young Adult T-Score -1.6 Age Matched Z-Score -0.6. RT FEMUR, TOTAL BMD 0.877 g/cm2 Young Adult T-Score -1.0 Age Matched Z-Score -0.5. RT NECK BMD 0.809 g/cm2 Young Adult T-Score -1.6 Age Matched Z-Score -0.7. IMPRESSION: There is normal bone density of the spine. There is low bone density of the left hip. There is low bone density of the right hip. FOLLOW-UP: Recommendation for the next bone density exam: 2 years. <Electronically signed by Edgar Purdy > 11/29/20 [id number]
== END ==
LOC: M WHC 10:10
PROVIDERS: ATTEND Internal Medicine Medical Oncology
DX: C50.919 Malignant neoplasm of unspecified site of unspecified female breast (principal)

== ENCOUNTER → 2021-01-02 | Outpatient (CLI) | payer BC ==
[~2021-01-02] MED LIST changes: +PROHANCE 279.3MG/ML 15ML VIAL As Ordered ONE; +TRIA1OI TOP
--- NOTE | 2021-01-03 09:43 | REP ---
INDICATION: PANCREATIC LESION. COMPARISON: CT 08/01/2020. TECHNIQUE: Multiple sequences obtained in the axial and coronal planes prior to and following the intravenous administration of 13 mL ProHance. FINDINGS: The liver is not significantly enlarged. No liver mass is seen. The gallbladder demonstrates diffuse wall thickening of the fundus with luminal narrowing. Internally there is hypointense signal compatible with a gallstone, measuring approximately 1.3 cm in diameter. In addition, multiple fluid-filled intramural diverticula are noted in this region. The findings are consistent with segmental annular adenomyomatosis of the gallbladder. There is no biliary dilatation. The spleen is normal in size with no intrinsic abnormality. The adrenal glands are normal. The kidneys demonstrate no hydronephrosis. There is a 2 mm cyst in the lower pole the left kidney. In the tail of the pancreas there is a nonenhancing cystic structure, as seen on the prior CT scan, measuring approximately 1.4 cm in diameter. More peripherally in the tail the pancreas there is also a nonenhancing 4 mm cyst. In the superior body of the pancreas there is a 3 mm cyst. In the uncinate process of the pancreas there is a nonenhancing cyst measuring 4 mm in diameter. There is no pancreatic duct dilatation. There is no adenopathy or free fluid in the abdomen. Incidental note is made of a nonenhancing 1.6 cm cyst in the right breast. IMPRESSION: There are findings of segmental annular adenomyomatosis of the gallbladder, involving the fundus. Nonenhancing cystic structures in the pancreas, the largest is in the tail of the pancreas measuring 1.4 cm in diameter. There is no suspicious enhancement. Recommend follow-up MRI of the pancreas in 1 year. <Electronically signed by Edgar Purdy > 01/03/21 0932
== END ==
LOC: M RAD 16:29
PROVIDERS: ATTEND Family Medicine
DX: K86.2 Cyst of pancreas (principal); N28.1 Cyst of kidney, acquired; N60.01 Solitary cyst of right breast
CPT/HCPCS: 74183; A9576

== ENCOUNTER → 2021-03-09 | Outpatient (CLI) | payer BC ==
[~2021-03-09] MED LIST changes: +PROBCAP14 PO; -PROHANCE 279.3MG/ML 15ML VIAL As Ordered ONE
== END ==
LOC: M WHC 13:20
PROVIDERS: ATTEND Surgery
DX: D05.11 Intraductal carcinoma in situ of right breast (principal); Z98.890 Other specified postprocedural states
CPT/HCPCS: 77066; G0279

== ENCOUNTER → 2021-05-30 | Outpatient (CLI) | payer BC ==
[~2021-05-30] MED LIST changes: +CALC500C16 PO; -D31000TA2 PO; +VITA100093 PO
== END ==
LOC: M ONCR 14:02
PROVIDERS: ATTEND Radiology Radiation Oncology
DX: C50.911 Malignant neoplasm of unspecified site of right female breast (principal); L76.34 Postprocedural seroma of skin and subcutaneous tissue following other procedure; Z91.048 Other nonmedicinal substance allergy status; Z92.21 Personal history of antineoplastic chemotherapy; Z92.3 Personal history of irradiation

== ENCOUNTER → 2021-12-06 | Outpatient (CLI) | payer BC | LOC: M ONCR 15:55 | PROVIDERS: ATTEND General Practice | DX: D05.11 Intraductal carcinoma in situ of right breast (principal); Z92.3 Personal history of irradiation ==

== ENCOUNTER → 2022-04-16 | Outpatient (CLI) | payer BC | LOC: M WHC 13:02 | PROVIDERS: ATTEND Nurse Practitioner Women's Health | DX: D05.11 Intraductal carcinoma in situ of right breast (principal) | CPT/HCPCS: 77066; G0279 ==

== ENCOUNTER → 2022-12-02 | Outpatient (CLI) | payer BC ==
[~2022-12-02] MED LIST changes: +VITMTA PO
== END ==
LOC: M WHC 10:01
PROVIDERS: ATTEND Nurse Practitioner
DX: C50.911 Malignant neoplasm of unspecified site of right female breast (principal); M85.88 Other specified disorders of bone density and structure, other site

== ENCOUNTER → 2023-04-21 | Outpatient (CLI) | payer BC | LOC: M WHC 13:30 | PROVIDERS: ATTEND Nurse Practitioner Women's Health | DX: D05.11 Intraductal carcinoma in situ of right breast (principal) ==